=== PATIENT | male | born 1950 | race Asian ===

== ENCOUNTER 2018-11-18 07:08 | Day surgery (SDC) | payer BC ==
[2018-11-18] MEDS ORDERED: PROPOFOL 60 ML (10:00)
== END 2018-11-18 11:08 | disposition home or self-care (01) ==
LOC: GIL 07:08
DX: I85.00 Esophageal varices without bleeding (principal); K31.7 Polyp of stomach and duodenum; I10 Essential (primary) hypertension; F17.200 Nicotine dependence, unspecified, uncomplicated; Z85.05 Personal history of malignant neoplasm of liver
CPT/HCPCS: 43251; 88305; 88312